=== PATIENT | male | born 1985 | race Two or more races ===

== ENCOUNTER 2023-09-16 17:15 | Emergency (ER) | payer MEDICAID ==
[~2023-09-16] VITALS: Ht 188 cm; Wt 140.7 kg
[2023-09-16 18:04] LABS: Basophils # (auto) 0.1 10 ^3/uL (0-0.2); Basophils % (auto) 0.5 % (0.0-2.0); Eosinophils # (auto) 0.1 10 ^3/uL (0-0.8); Eosinophils % (auto) 1.1 % (0.0-7.0); Hematocrit 37.5 % (41.0-53.0); Hemoglobin 12.7 g/dL (13.5-17.5); Lymphocytes # (auto) 1.8 10 ^3/uL (0.4-5.4); Lymphocytes % (auto) 17.7 % (10.0-50.0); Mean Corpuscular Hemoglobin 29.1 pg (28.0-32.0); Mean Corpuscular Hgb Conc. 33.8 g/dL (32.0-36.0); Mean Corpuscular Volume 86.3 fL (80.0-100.0); Monocytes # (auto) 0.8 10 ^3/uL (0-1.3); Neutrophils # (auto) 7.5 10 ^3/uL (1.6-8.6); Neutrophils % (auto) 72.7 % (37.0-80.0); Red Blood Cells 4.35 10^6/uL (4.5-5.90); White Blood Cell 10.4 10^3/uL (4.4-10.8)
[2023-09-16 18:13] LABS: Urine Bacteria None Seen /hpf (None Seen)
[2023-09-16 18:18] LABS: Alanine Aminotransferase 27 U/L (7-40); Albumin 4.5 g/dL (3.2-4.8); Alkaline Phosphatase 113 U/L (46-116); Anion Gap 8 (5-15); Aspartate Aminotransferase 14 U/L (13-40); BUN/Creatinine Ratio 8.5 (10.0-20.0); Blood Urea Nitrogen 11 mg/dL (9-23); Calcium 9.3 mg/dL (8.5-10.1); Carbon Dioxide 22 mmol/L (20-30); Chloride 107 mmol/L (98-107); Glucose 127 mg/dL (74-106); Potassium 3.9 mmol/L (3.5-5.1); Sodium 137 mmol/L (136-145)
[2023-09-16 18:19] LABS: Bilirubin, Total 0.6 mg/dL (0.2-1.0)
[2023-09-16 18:36] LABS: Urine Blood Negative /uL (Negative); Urine Clarity Clear (Clear); Urine Color Light-Yellow (Yellow); Urine Protein, UAD Negative (Negative); Urine Specific Gravity 1.012 (1.001-1.035); Urine Urobilinogen Normal (Negative); Urine WBC 2 /hpf (0 - 3)
[2023-09-16] MEDS ORDERED: BACDST PO (21:07)
[2023-09-16] MEDS ORDERED: HYDR-4798 PO (21:07)
[2023-09-16] MEDS ORDERED: RIV15T PO (21:07)
[2023-09-16] MEDS: HYDROcodone-ACET 10/325MG TAB PO ONE (21:35)
[2023-09-16] MEDS: SULFAMETHOX W/TRIMETH(800/160MG) DS TAB PO ONE (21:35)
[2023-09-16 21:40] VITALS: BP 126/51; PULSE 76; RESP 18; TEMP 98.3; O2SAT 97
[2023-09-17] MEDS ORDERED: RIVAROXABAN 15 MG TAB PO SCH (18:00)
== END 2023-09-16 21:43 | disposition home or self-care (01) ==
LOC: ER 17:22
DX: I82.401 Acute embolism and thrombosis of unspecified deep veins of right lower extremity (principal); L03.115 Cellulitis of right lower limb
CPT/HCPCS: 36415; 80053; 81001; 83880; 84484; 85025; 93970

== ENCOUNTER 2023-10-14 02:29 | Inpatient (IN) | payer MEDICAID ==
[~2023-10-14] VITALS: Ht 188 cm; Wt 142.6 kg
[~2023-10-14 02:29] MED LIST: BACDST PO; HYDR-4798 PO; RIV15T PO
[2023-10-14 07:59] VITALS: PULSE 84; RESP 16; O2SAT 98
[2023-10-14] MEDS: SODIUM CHLORIDE 0.9% 1,000 ML IV ONE (09:04)
[2023-10-14] MEDS: cefTRIAXone 1GM/50ML D5W 50 ML IV ONE (09:05)
[2023-10-14 09:14] LABS: Anion Gap 8 (5-15); Carbon Dioxide 21 mmol/L (20-30); Chloride 107 mmol/L (98-107); Potassium 3.7 mmol/L (3.5-5.1); Sodium 136 mmol/L (136-145)
[2023-10-14 09:15] LABS: Calcium 9.1 mg/dL (8.5-10.1)
[2023-10-14 09:19] LABS: Basophils # (auto) 0 10 ^3/uL (0-0.2); Basophils % (auto) 0.5 % (0.0-2.0); Eosinophils # (auto) 0.2 10 ^3/uL (0-0.8); Eosinophils % (auto) 2.2 % (0.0-7.0); Hematocrit 36.8 % (41.0-53.0); Hemoglobin 12.5 g/dL (13.5-17.5); Lymphocytes # (auto) 1.8 10 ^3/uL (0.4-5.4); Lymphocytes % (auto) 17.8 % (10.0-50.0); Mean Corpuscular Hemoglobin 29.8 pg (28.0-32.0); Mean Corpuscular Volume 87.8 fL (80.0-100.0); Monocytes # (auto) 1.1 10 ^3/uL (0-1.3); Monocytes % (auto) 11.3 % (0.0-12.0); Neutrophils # (auto) 6.7 10 ^3/uL (1.6-8.6); Neutrophils % (auto) 68.2 % (37.0-80.0); Red Blood Cells 4.19 10^6/uL (4.5-5.90); Red Cell Distribution Width 13.4 % (11.8-14.3); White Blood Cell 9.9 10^3/uL (4.4-10.8)
[2023-10-14 09:20] LABS: Blood Urea Nitrogen 13 mg/dL (9-23); Glucose 99 mg/dL (74-106)
[2023-10-14] MEDS: CLINDAMYCIN 600MG IV 50 ML IV ONE (10:17)
[2023-10-14 12:28] LABS: Triglycerides 81 mg/dL (< 150)
[2023-10-14 12:29] LABS: LDL Cholesterol 87 mg/dL (< 100)
[2023-10-14 12:30] LABS: Cholesterol 144 mg/dL (< 200); HDL Cholesterol 50 mg/dL (40-59)
[2023-10-14 13:37] VITALS: BP 136/74; PULSE 80; RESP 20; TEMP 98.2; O2SAT 94
[2023-10-14] MEDS: CLINDAMYCIN 600MG IV 50 ML IV SCH (14:00)
[2023-10-14] MEDS ORDERED: ALBU2TAB11 PO (14:43)
[2023-10-14] MEDS: SODIUM CHLORIDE 0.9% 1,000 ML IV SCH (15:30)
[2023-10-14 16:00] VITALS: BP 123/51; PULSE 83; RESP 18; TEMP 99.5; O2SAT 96
[2023-10-14] MEDS: HYDROcodone-ACET 5/325MG TAB PO PRN (20:22)
[2023-10-14 21:00] VITALS: BP 120/61; PULSE 77; RESP 20; TEMP 98.4; O2SAT 98
[2023-10-14] MEDS: ASCORBIC ACID 500 MG TAB PO SCH (21:19)
[2023-10-14] MEDS: RIVAROXABAN 15 MG TAB PO SCH (21:19)
[2023-10-15 04:42] VITALS: BP 119/64; PULSE 76; RESP 18; TEMP 98.4; O2SAT 98
[2023-10-15 05:44] LABS: Basophils # (auto) 0 10 ^3/uL (0-0.2); Basophils % (auto) 0.5 % (0.0-2.0); Eosinophils # (auto) 0.4 10 ^3/uL (0-0.8); Eosinophils % (auto) 5.1 % (0.0-7.0); Hematocrit 38.9 % (41.0-53.0); Hemoglobin 13.3 g/dL (13.5-17.5); Lymphocytes # (auto) 2.1 10 ^3/uL (0.4-5.4); Lymphocytes % (auto) 25.9 % (10.0-50.0); Mean Corpuscular Hemoglobin 30.1 pg (28.0-32.0); Mean Corpuscular Hgb Conc. 34.3 g/dL (32.0-36.0); Mean Corpuscular Volume 87.7 fL (80.0-100.0); Monocytes # (auto) 1.2 10 ^3/uL (0-1.3); Monocytes % (auto) 14.7 % (0.0-12.0); Neutrophils # (auto) 4.3 10 ^3/uL (1.6-8.6); Neutrophils % (auto) 53.8 % (37.0-80.0); Red Blood Cells 4.43 10^6/uL (4.5-5.90); Red Cell Distribution Width 13.5 % (11.8-14.3)
[2023-10-15 05:58] LABS: Alanine Aminotransferase 29 U/L (7-40); Albumin 4.3 g/dL (3.2-4.8); Alkaline Phosphatase 92 U/L (46-116); Anion Gap 8 (5-15); Aspartate Aminotransferase 18 U/L (13-40); BUN/Creatinine Ratio 9.5 (10.0-20.0); Bilirubin, Total 0.7 mg/dL (0.2-1.0); Blood Urea Nitrogen 10 mg/dL (9-23); Calcium 9.2 mg/dL (8.5-10.1); Carbon Dioxide 20 mmol/L (20-30); Chloride 109 mmol/L (98-107); Glucose 110 mg/dL (74-106); Potassium 4.3 mmol/L (3.5-5.1); Sodium 137 mmol/L (136-145)
[2023-10-15 08:39] VITALS: BP 119/74; PULSE 79; RESP 16; TEMP 98.7; O2SAT 100
[2023-10-15] MEDS: cefTRIAXone 1GM/50ML D5W 50 ML IV SCH (09:44)
[2023-10-15] MEDS ORDERED: ENOXAPARIN SOD 40 MG/0.4 ML SYRINGE SC SCH (10:00)
[2023-10-15] MEDS: MULTIPLE VITAMIN TAB PO SCH (10:24)
[2023-10-15] MEDS: ZINC SULFATE 220mg CAP or TAB PO SCH (10:24)
[2023-10-15] MEDS: ACETAMINOPHEN 325 MG TAB PO PRN (10:42)
[2023-10-15 12:42] VITALS: BP 131/80; PULSE 71; RESP 16; TEMP 98.6; O2SAT 99
[2023-10-15 16:44] VITALS: BP 122/65; PULSE 68; RESP 18; TEMP 98.4; O2SAT 98
[2023-10-15 21:00] VITALS: BP_SYST 123; BP_SYST 144; BP_DIAS 60; BP_DIAS 75; PULSE 74; PULSE 77; RESP 20; TEMP 98.6; TEMP 98.7; O2SAT 97
[2023-10-16 01:00] VITALS: BP 117/69; PULSE 59; RESP 20; TEMP 96.9; O2SAT 94
[2023-10-16 05:00] VITALS: BP 116/69; PULSE 67; RESP 20; TEMP 96.8; O2SAT 98
[2023-10-16 09:00] VITALS: BP 115/88; PULSE 73; RESP 17; TEMP 98.2; O2SAT 97
[2023-10-16] MEDS ORDERED: CLIN1CAP70 PO (13:06)
[2023-10-16 13:07] VITALS: BP 146/86; PULSE 94; RESP 16; TEMP 98; O2SAT 98
[2023-10-16] MEDS ORDERED: PNEUMOCOCCAL VACC POLYS 25 MCG/0.5 ML VIAL IM SCH (14:15)
[2023-10-16 14:49] VITALS: BP 146/86; PULSE 94; RESP 16; TEMP 98; O2SAT 98
[2023-10-16] MEDS: PNEUMOCOCCAL VACC POLYS 25 MCG/0.5 ML VIAL IM ONE (15:15)
== END 2023-10-16 15:18 | disposition home or self-care (01) | DRG 383 ==
LOC: ER 02:29 → OVERFLOW 11:48 → WEST WING 13:20
PROVIDERS: ADMIT Nurse Practitioner Family; ATTEND Nurse Practitioner Family
DX: L03.116 Cellulitis of left lower limb (principal); E66.01 Morbid (severe) obesity due to excess calories; I10 Essential (primary) hypertension; Z68.41 Body mass index [BMI] 40.0-44.9, adult; Z65.3 Problems related to other legal circumstances; Z86.718 Personal history of other venous thrombosis and embolism; Z59.00 Homelessness unspecified; Z79.01 Long term (current) use of anticoagulants
CPT/HCPCS: 36415; 80048; 80053; 80061; 84443; 85025; 87040; 93971; G0378; J3490